=== PATIENT | female | born 1970 | race Caucasian/White ===

== ENCOUNTER 2016-04-08 14:39 | Emergency (ER) | payer MEDICAID ==
--- NOTE | 2016-04-08 15:29 | EDM.PDOC ---
ED HPI NEURO - General Chief Complaint: Neurological Problem Stated Complaint: [facility] Time Seen by Provider: 04/08/16 15:16 Source: Reports: Patient, EMS, RN notes reviewed History Limitations: Reports: No limitations - History of Present Illness INITIAL COMMENTS - FREE TEXT/NARRATIVE: 45-year-old female presents to emergency Department via EMS services for seizure with a fall, she was standing in line at the eye care clinic fell over hit her head injuring her right orbit area had a tonic-clonic seizure while in the clinic in a services were called by the time they arrived the seizure had stopped she has a known seizure disorder which takes Keppra. She was postictal for 10-15 minutes following this episode she is able to communicate freely by the time I examined her. She states she is taking her medications appropriately - Related Data Allergies/ADRs: Allergies Allergy/AdvReac Type Severity Reaction Status Date / Time No Known Allergies Allergy Verified 04/08/16 14:44 Home Meds: Home Meds DULoxetine [Cymbalta] 04/08/16 [History] DULoxetine [Cymbalta] 04/08/16 [History] Gabapentin [Neurontin] 04/08/16 [History] Haloperidol [Haldol] 04/08/16 [History] Pantoprazole [Protonix] 04/08/16 [History] levETIRAcetam [Keppra XR] 04/08/16 [History] Past Medical History Neurological History: Reports: Seizure - Past Surgical History Female Surgical History: Reports: section Social & Family History - Tobacco Use Smoking Status *Q: Never Smoker ED ROS GENERAL - Review of Systems Review Of Systems: See Below Constitutional: Reports: no symptoms HEENT: Reports: Other (Pain around the right orbit) Respiratory: Reports: no symptoms Cardiovascular: Reports: No symptoms GI/Abdominal: Reports: No symptoms : Reports: no symptoms Musculoskeletal: Reports: neck pain Skin: Reports: no symptoms Neurological: Reports: headache, seizure ED EXAM, NEURO - Physical Exam Exam: See Below Text/Narrative:: General: Female, not in any distress, alert and oriented x3 HEENT: head is mild bruising is appreciated around the right orbit with edema tender to palpation normocephalic, eyes pupils equal round reactive to light and accommodation sclera clear no conjunctivitis appreciated. Extraocular eye movements intact Ears tympanic membranes clear and mares landmarks and light reflex are present bilaterally canals are clear. Nose no septal deviation, nares are clear, no blood present. Mouth mucosa is moist and pink no erythema or exudate noted in soft palate, tongue is midline uvula is midline, dentition is intact. Neck: Supple no thyromegaly no tracheal deviation., Tender to palpation midline Nodes: Cervical nodes subclavicular nodes nontender no palpable lymphadenopathy noted. Lungs: clear to auscultation bilaterally with symmetrical respirations, no adventitious noise appreciated. CV: tachy rate and rhythm S1 and S2 appreciated no murmurs rubs or gallops noted. Abdomen: Soft, nontender, no palpable masses or organomegaly appreciated, no distention no guarding bowel sounds are present, . Neuro: Cranial nerves II through XII grossly intact Skin: Warm and dry, intact Course - Vital Signs Last Recorded V/S: Last Vital Signs Temp 97.3 F 04/08/16 14:58 Pulse 131 H 04/08/16 17:52 Resp 20 04/08/16 17:52 BP 110/75 04/08/16 17:52 Pulse Ox 99 04/08/16 17:52 - Orders/Labs/Meds Orders: Active Orders 24 hr Category Date Time Status Cervical Spine wo Cont [CT] Stat Exams 04/08/16 15:25 Taken Head wo Cont [CT] Stat Exams 04/08/16 15:25 Taken Max Facial Sinus wo Cont [CT] Stat Exams 04/08/16 15:25 Taken Labs: Laboratory Tests 04/08/16 04/08/16 04/08/16 Range/Units 15:32 15:32 16:18 WBC 5.6 (4.5-11.0) K/uL RBC 4.52 (3.30-5.50) M/uL Hgb 11.1 L (12.0-15.0) g/dL Hct 35.4 L (36.0-48.0) % MCV 78 L (80-98) fL MCH 25 L (27-31) pg MCHC 31 L (32-36) % Plt Count 54 L (150-400) K/uL Neut % (Auto) 81 H (36-66) % Lymph % (Auto) 10 L (24-44) % Mcminn % (Auto) 9 H (2-6) % Eos % (Auto) 0 L (2-4) % Baso % (Auto) 0 (0-1) % Sodium 135 L (140-148) mmol/L Potassium 4.0 (3.6-5.2) mmol/L Chloride 97 L (100-108) mmol/L Carbon Dioxide 24 (21-32) mmol/L Anion Gap 18.0 H (5.0-14.0) mmol/L BUN 5 L (7-18) mg/dL Creatinine 0.9 (0.6-1.0) mg/dL Est Cr Clr Drug Dosing 70.28 mL/min Estimated GFR (MDRD) > 60 (>60) Glucose 97 (74-106) mg/dL Calcium 8.1 L (8.5-10.1) mg/dL Total Bilirubin 1.1 H (0.2-1.0) mg/dL AST 186 H (15-37) U/L ALT 84 H (12-78) U/L Alkaline Phosphatase 210 H (46-116) U/L Total Protein 7.7 (6.4-8.2) g/dL Albumin 3.1 L (3.4-5.0) g/dL Globulin 4.6 H (2.3-3.5) g/dL Albumin/Globulin Ratio 0.7 L (1.2-2.2) TSH, Ultra Sensitive 9.090 H (0.358-3.740) uIU/mL Urine Color Urine Appearance Urine pH (4.5-8.0) Ur Specific [place] (1.008-1.030) Urine Protein (NEGATIVE) mg/dL Urine Glucose (UA) (NEGATIVE) mg/dL Urine Ketones (NEGATIVE) mg/dL Urine Occult Blood (NEGATIVE) Urine Nitrite (NEGATIVE) Urine Bilirubin (NEGATIVE) Urine Urobilinogen (NORMAL) mg/dL Ur Leukocyte Esterase (NEGATIVE) Urine RBC (0-5) Urine WBC (0-5) Ur Epithelial Cells Amorphous Sediment Urine Bacteria Urine Mucus Urine Opiates Screen (NEGATIVE) Ur Oxycodone Screen (NEGATIVE) Urine Methadone Screen (NEGATIVE) Ur Propoxyphene Screen (NEGATIVE) Ur Barbiturates Screen (NEGATIVE) Ur Tricyclics Screen (NEGATIVE) Ur Phencyclidine Scrn (NEGATIVE) Ur Amphetamine Screen (NEGATIVE) U Methamphetamines Scrn (NEGATIVE) Urine MDMA Screen (NEGATIVE) U Benzodiazepines Scrn (NEGATIVE) U Cocaine Metab Screen (NEGATIVE) U Marijuana (THC) Screen (NEGATIVE) 04/08/16 04/08/16 Range/Units 16:33 16:33 WBC (4.5-11.0) K/uL RBC (3.30-5.50) M/uL Hgb (12.0-15.0) g/dL Hct (36.0-48.0) % MCV (80-98) fL MCH (27-31) pg MCHC (32-36) % Plt Count (150-400) K/uL Neut % (Auto) (36-66) % Lymph % (Auto) (24-44) % Mcminn % (Auto) (2-6) % Eos % (Auto) (2-4) % Baso % (Auto) (0-1) % Sodium (140-148) mmol/L Potassium (3.6-5.2) mmol/L Chloride (100-108) mmol/L Carbon Dioxide (21-32) mmol/L Anion Gap (5.0-14.0) mmol/L BUN (7-18) mg/dL Creatinine (0.6-1.0) mg/dL Est Cr Clr Drug Dosing mL/min Estimated GFR (MDRD) (>60) Glucose (74-106) mg/dL Calcium (8.5-10.1) mg/dL Total Bilirubin (0.2-1.0) mg/dL AST (15-37) U/L ALT (12-78) U/L Alkaline Phosphatase (46-116) U/L Total Protein (6.4-8.2) g/dL Albumin (3.4-5.0) g/dL Globulin (2.3-3.5) g/dL Albumin/Globulin Ratio (1.2-2.2) TSH, Ultra Sensitive (0.358-3.740) uIU/mL Urine Color Yellow Urine Appearance Slightly cloudy Urine pH 6.0 (4.5-8.0) Ur Specific [place] 1.010 (1.008-1.030) Urine Protein Negative (NEGATIVE) mg/dL Urine Glucose (UA) Normal (NEGATIVE) mg/dL Urine Ketones Negative (NEGATIVE) mg/dL Urine Occult Blood Negative (NEGATIVE) Urine Nitrite Negative (NEGATIVE) Urine Bilirubin Negative (NEGATIVE) Urine Urobilinogen Normal (NORMAL) mg/dL Ur Leukocyte Esterase Negative (NEGATIVE) Urine RBC 0-5 (0-5) Urine WBC 5-10 H (0-5) Ur Epithelial Cells Many Amorphous Sediment Few Urine Bacteria Few Urine Mucus Few Urine Opiates Screen Negative (NEGATIVE) Ur Oxycodone Screen Negative (NEGATIVE) Urine Methadone Screen Negative (NEGATIVE) Ur Propoxyphene Screen Negative (NEGATIVE) Ur Barbiturates Screen Negative (NEGATIVE) Ur Tricyclics Screen Negative (NEGATIVE) Ur Phencyclidine Scrn Negative (NEGATIVE) Ur Amphetamine Screen Negative (NEGATIVE) U Methamphetamines Scrn Negative (NEGATIVE) Urine MDMA Screen Negative (NEGATIVE) U Benzodiazepines Scrn Negative (NEGATIVE) U Cocaine Metab Screen Negative (NEGATIVE) U Marijuana (THC) Screen Negative (NEGATIVE) Meds: Medications Discontinued Medications Generic Name Dose Route Start Last Admin Trade Name Freq PRN Reason Stop Dose Admin Lorazepam 1 mg 04/08/16 16:22 04/08/16 16:56 Ativan PO 04/08/16 16:23 1 mg ONETIME ONE Administration Departure - Departure Time of Disposition: 17:57 Disposition: Home, Self-Care 01 Condition: good Clinical Impression: Seizure Forms: ED Department Discharge Additional Instructions: stay on your Keppra please keep your appointment with your primary care provider next week, call or return to the ED with worsening of symptoms - My Orders Last 24 Hours: My Active Orders 04/08/16 15:25 Cervical Spine wo Cont [CT] Stat Head wo Cont [CT] Stat Max Facial Sinus wo Cont [CT] Stat - Assessment/Plan Last 24 Hours: My Active Orders 04/08/16 15:25 Cervical Spine wo Cont [CT] Stat Head wo Cont [CT] Stat Max Facial Sinus wo Cont [CT] Stat Plan: Assessment Acuity = acute Site and laterality = seizure tonic-clonic type complicating the patient's known history of seizure disorderand alcohol use Etiology = unclear etiology Manifestations = none Location of injury = home Lab values = 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 microchromic anemia platelets low at 54 consistent thrombocytopenia sodium low at 135 consistent with hyponatremia 20 bilirubin elevated 1.1 consistent hyperbilirubinemia AST elevated at 186 ALT elevated 84 elevated liver enzymes albumin low at 2.1 consistent hypoalbuminemia TSH elevated at 9.49 consistent with hypothyroidism VBC in the urine 5-10 consistent pyuria drug screen was negative CT scan head neck and facial bones negative no fracture noted Plan I did review labs with her as well as CT scan results she remained tachycardic she did also have a set of old labs and vital signs from a clinic visit 2 weeks ago which demonstrated a pulse of 111 labs are very similar including the thrombocytopenia however the sodium is new and this possibly may be related to the Keppra which she's only been on for 2 weeks. She does have a followup appointment with her primary care provider on April 14 and she has a followup appointment with neurology as well in May I have asked her to try follow up with neurology sooner Patient was in agreement with the plan all questions were answered, they were instructed to return to the emergency department or call for worsening symptoms. This note was dictated using [employer] voice recognition software please call with any questions.
[2016-04-08] MEDS ORDERED: LORazepam 1 MG Tab PO ONE (16:22)
[2016-04-08 17:54] VITALS: BP 110/75
== END 2016-04-08 18:38 | disposition home or self-care (01) ==
LOC: JP.ED 14:39
DX: R56.9 Unspecified convulsions (principal); Z98.890 Other specified postprocedural states; Z79.899 Other long term (current) drug therapy
CPT/HCPCS: 36415; 70450; 70486; 72125; 80053; 80305; 81001; 84443; 85025; 99284; A9270